=== PATIENT | male | born 1955 | race Caucasian/White ===

== ENCOUNTER 2024-12-30 16:39 | Emergency (ER) | payer OTHER ==
[~2024-12-30] VITALS: Ht 182.9 cm; Wt 105.0 kg
[2024-12-30] MEDS: LORazepam 2MG/ML-1ML VIAL IV ONE (17:28)
[2024-12-30] MEDS: SODIUM CHLORIDE 0.9% 1,000 ML IV ONE (17:29)
[2024-12-30] MEDS: THIAMINE HCL 100 MG TAB PO ONE (17:34)
[2024-12-30 17:47] LABS: Basophils # (auto) 0 10 ^3/uL (0-0.2); Basophils % (auto) 0.7 % (0.0-2.0); Eosinophils # (auto) 0 10 ^3/uL (0-0.8); Eosinophils % (auto) 0.4 % (0.0-7.0); Hematocrit 47.7 % (41.0-53.0); Hemoglobin 16.6 g/dL (13.5-17.5); Lymphocytes # (auto) 0.9 10 ^3/uL (0.4-5.4); Lymphocytes % (auto) 14.3 % (10.0-50.0); Mean Corpuscular Hemoglobin 31.6 pg (28.0-32.0); Mean Corpuscular Hgb Conc. 34.9 g/dL (32.0-36.0); Mean Corpuscular Volume 90.6 fL (80.0-100.0); Monocytes # (auto) 0.8 10 ^3/uL (0-1.3); Monocytes % (auto) 13.7 % (0.0-12.0); Neutrophils # (auto) 4.3 10 ^3/uL (1.6-8.6); Neutrophils % (auto) 70.9 % (37.0-80.0); Nucleated Red Blood Cells % 0.1 %; Platelet Count (auto) 227 10^3/uL (140-450); Red Blood Cells 5.26 10^6/uL (4.5-5.90); Red Cell Distribution Width 12.9 % (11.8-14.3); White Blood Cell 6.1 10^3/uL (4.4-10.8)
--- NOTE | 2024-12-30 17:59 | ED.PDOC ---
Psychiatric HPI Comments HPI: 69y M who presents to the ED for chief complaint of restlessness - pt states he has history of EOTH use disorder and states he drinks regularly - pt states he drinks 2 beers daily with noted 4-5 shots of heavy liquor with brother nightly. - pt states after last drink approx 11 AM which was 2 shots of hard liquor, he f elt restless and anxious since and was taken by spouse to [facility] for evaluation - pt states EMS was called at [facility] for evaluation for pt - pt now in the ED, noted to be restless with shaking like movements - pt otherwise denies any other symptoms Past Medical history: HTN, gout, bipolar, anxiety, HLD Past Surgical history: denies Medications: buspirone, metroprolol, trazadone, lisinopri, Allergies: nsaids Social History: endorses ETOH, denies tobacco use, endorses drug use(louisto) DORINDA; HPI: Poor Historian. Patient appears restless and anxious. REVIEW OF SYSTEMS: CONSTITUTIONAL: Denies acute: fever, diaphoresis, chills, generalized weakness. HEAD: Denies acute: headache, photophobia Eyes: Denies acute: Double vision, vision loss, eye pain, eye discharge. EARS: Denies acute: tinnitus, hearing loss, ear discharge, ear pain, THROAT: Denies acute: sore throat, swelling, difficulty swallowing , pain with swallowing, change in voice. NECK: Denies acute: neck pain, neck swelling, stiff neck. HEART: Denies acute : chest pain, palpitations, LUNGS: Denies acute: SOB, wheezing, cough, hemoptysis ABDOMEN: Denies acute: abdominal pain, Nausea, Vomiting, diarrhea, melena , hematemesis, hematochezia SKIN: Denies acute: rash, redness, lesions, itchiness. EXTREMITIES: Denies acute: calf pain, numbness, tingling, weakness, denies pain in extremity. Denies acute: Low back pain. Neuro: Denies acute: focal neurological deficit, motor or sensory focal neurological deficit, tremors, seizure like activity, confusion, dizziness, change in mental status, loss of bowel or bladder function, cauda equina like symptoms. : Denies acute: dysuria, hematuria, flank pain, increase in urinary frequency. PSYCH: Denies acute: hallucination, suicidal ideation, homicidal ideation. FEMALE: Denies acute: abnormal vaginal bleeding, foul odor, unusual discharge. PHYSICAL EXAM: General: ---mild-----acute distress, awake and alert. Appears restless Head: normocephalic, atraumatic. Neck: supple, trachea is midline, no swelling. Throat: Normal phonation. Eyes:, no erythema, no purulent discharge, no proptosis, no icterus. Heart: regular rate, regular rhythm, no significant murmur appreciated. Lungs: no apparent respiratory distress, Able to speak in full sentences. No wheezing, no rhonchi, no crackles. No stridors Clear to auscultation bilaterally. Abdomen: non tender to palpation, non distended, soft, no guarding, no rebound, + bowel sounds. Neuro: Awake, Alert, oriented to name, self, situation, follows commands GCS=15. Speech is normal. Skin: no petechia, no purpura, no cyanosis, non-pale, not jaundice. Lower extremities: --1/4 B/L - Pitting edema no deformity, no focal swelling, no calf TTP. Makes eye contact. moves all four extremities. Face: no apparent facial droop. ED COURSE: Chief Complaint: Anxiety Time Seen by MD: 17:58 Reviewed Notes: Medications, Allergies Information Source: Patient Mode of Arrival: EMS Was a procedure done? Was a procedure done?: No Psych Differential Dx OD Differential Dx: Alcohol Abuse, Anxiety Intoxication Differential Dx: Alcohol Withdraw Syndrome, Delerium Tremens, Hallucinations, Seizures, Anticholinergic Poisoning, Dehydration, Electrolyte Imbalance, Intoxication, Seizure Disorder, Substance Abuse Disorder X-Ray, Labs, Meds, VS Vital Signs Date Time Temp Pulse Resp B/P (MAP) Pulse Ox O2 Delivery O2 Flow Rate FiO2 12/30/24 21:00 79 12/30/24 20:45 19 Room Air* 0 21 12/30/24 19:06 98.7 83 19 135/92 (106) 95 98.7 Lab Test 12/30/24 19:13 12/30/24 17:34 Range/Units Troponin I High Sensitivity 7 6 </=54 ng/L Plasma/Serum Blood Alcohol < 3.0 <10 mg/dL White Blood Count 6.1 4.4-10.8 10^3/uL Red Blood Count 5.26 4.5-5.90 10^6/uL Hemoglobin 16.6 13.5-17.5 g/dL Hematocrit 47.7 41.0-53.0 % Mean Corpuscular Volume 90.6 80.0-100.0 fL Mean Corpuscular Hemoglobin 31.6 28.0-32.0 pg Mean Corpuscular Hemoglobin Concent 34.9 32.0-36.0 g/dL Red Cell Distribution Width 12.9 11.8-14.3 % Platelet Count 227 140-450 10^3/uL Mean Platelet Volume 8.1 6.9-10.8 fL Neutrophils (%) (Auto) 70.9 37.0-80.0 % Lymphocytes (%) (Auto) 14.3 10.0-50.0 % Monocytes (%) (Auto) 13.7 H 0.0-12.0 % Eosinophils (%) (Auto) 0.4 0.0-7.0 % Basophils (%) (Auto) 0.7 0.0-2.0 % Neutrophils # (Auto) 4.3 1.6-8.6 10 ^3/uL Lymphocytes # (Auto) 0.9 0.4-5.4 10 ^3/uL Monocytes # (Auto) 0.8 0-1.3 10 ^3/uL Eosinophils # (Auto) 0 0-0.8 10 ^3/uL Basophils # (Auto) 0 0-0.2 10 ^3/uL Nucleated Red Blood Cells 0.1 % Sodium Level 133 L 136-145 mmol/L Potassium Level 3.7 3.5-5.1 mmol/L Chloride Level 98 98-107 mmol/L Carbon Dioxide Level 23 20-31 mmol/L Anion Gap 12 5-15 Blood Urea Nitrogen < 5 L 9-23 mg/dL Creatinine 0.82 0.700-1.30 mg/dL Glomerular Filtration Rate Calc 96 >90 mL/min BUN/Creatinine Ratio 6.1 L 10.0-20.0 Serum Glucose 103 74-106 mg/dL Lactic Acid Level 1.8 0.4-2.0 mmol/L Calcium Level 10.0 8.7-10.4 mg/dL Magnesium Level 1.9 1.6-2.6 mg/dL Total Bilirubin 0.7 0.2-1.0 mg/dL Aspartate Amino Transferase (AST) 37 13-40 U/L Alanine Aminotransferase (ALT) 45 H 7-40 U/L Alkaline Phosphatase 78 46-116 U/L Total Protein 7.2 5.7-8.2 g/dL Albumin 4.7 3.2-4.8 g/dL Lipase 36 12-53 U/L Time of 1ST Reevaluation: 20:35 (The case was discussed with the [facility] admitting team (HPI, physical exam, labs and diagnostic tests that were available at the time of disposition, ED course, treatment plan) on the phone. They transfer the patient to their service by ALS for further evaluation and treatment. Dr. [email or web address] Authorization number is--[id number]) Reevaluation 1ST: Improved Time of 2ND Reevaluation: 20:43 (At this point patient does not want to be transferred or be admitted to our hospital. He wants to go home. He said his is coming to pick him up.) Patient Education/Counseling: Diagnosis, Treatment Family Education/Counseling: Other Comments Patient presented with the above HPI.------workup was initiated. patient was found with the above mentioned diagnosis. the following medications were ordered: please refer to order lists of meds and tests obtained by myself Dr. Yu. Patient ED course and VS have been stabilized. Patient has been reassessed in the ED and remained in a stable condition. Pertinent incidental findings were discussed with the patient and/or family. Patient/family voices understanding and is agreeable with plan. Patient has been observed in the ED adequate length of time to insure improvement/stability. Escalation of care considered: Consideration of escalation to observation or admission Patient left against medical advice. Patient did not want to be transferred to [facility]. He said he will follow up as an outpatient. He said his family is coming to pick him up. All the reports of any imaging studies that were ordered by myself were reviewed by myself. Departure 1 Departure Time of Disposition: 18:26 Impression: Primary Impression: Alcohol withdrawal Additional Impressions: Anxiety Alcohol abuse Left against medical advice Disposition: 07 LEFT AGAINST MEDICAL ADVICE Admit to: Tele Condition: Guarded Additional Instructions: You are leaving against medical advice. Please seek medical attention DOMITILA. Seek help regarding your alcohol abuse and dependence. Follow up with your PCP DOMITILA. Return to the emergency department if you change your mind or if symptoms change or worsen. Discharged With: Self Critical Care Note Critical Care Time?: No I personally scribed for HUMA YU DO ([email or web address]) on 12/30/24 at 17:59. Electronically submitted by Lanre Khan ([email or web address]). HUMA YU DO Dec 30, 2024 17:59
[2024-12-30 18:07] LABS: Albumin 4.7 g/dL (3.2-4.8); Alkaline Phosphatase 78 U/L (46-116); Anion Gap 12 (5-15); Aspartate Aminotransferase 37 U/L (13-40); Carbon Dioxide 23 mmol/L (20-31); Chloride 98 mmol/L (98-107); Glucose 103 mg/dL (74-106); Magnesium 1.9 mg/dL (1.6-2.6); Potassium 3.7 mmol/L (3.5-5.1); Total Protein 7.2 g/dL (5.7-8.2)
[2024-12-30 18:08] LABS: Bilirubin, Total 0.7 mg/dL (0.2-1.0)
[2024-12-30 18:14] LABS: Alanine Aminotransferase 45 U/L (7-40); BUN/Creatinine Ratio 6.1 (10.0-20.0); Blood Urea Nitrogen < 5 mg/dL (9-23); Sodium 133 mmol/L (136-145)
[2024-12-30 18:31] LABS: Lipase 36 U/L (12-53)
[2024-12-30 19:06] VITALS: BP 135/92; TEMP 98.7; O2SAT 95
[2024-12-30 20:45] VITALS: RESP 19
[2024-12-30] MEDS ORDERED: CHL25C PO (20:45)
[2024-12-30] MEDS: chlordiazePOXIDE HCL 25 MG CAP PO ONE (20:48)
[2024-12-30 21:00] VITALS: PULSE 79
--- NOTE | 2024-12-31 15:19 | ECG ---
[facility] Test Date: 2024-12-30 Test Time: 21:00:55 Pat Name: GHAZAL SETH Department: ER Room: Gender: M Rib Knitter: : [id number] Requested By: HUMA STUART Order Number: [id number] Reading MD: Measurements Intervals [place] Rate: 79 P: 0 OR: 0 QRS: 174 QRSD: 109 T: -9 QT: 426 QTc: 489 Interpretive Statements Atrial flutter with predominant 3:1 AV block Right axis deviation Abnormal R-wave progression, late transition Borderline T abnormalities, inferior leads Borderline prolonged QT interval Please click the below link to view image of tracing.
== END 2024-12-30 20:55 | disposition left against medical advice (07) ==
LOC: EDBD 16:39 → ER 16:39
DX: F10.239 Alcohol dependence with withdrawal, unspecified (principal); F41.9 Anxiety disorder, unspecified; I10 Essential (primary) hypertension; E78.5 Hyperlipidemia, unspecified; F31.9 Bipolar disorder, unspecified; Z88.6 Allergy status to analgesic agent; Z79.899 Other long term (current) drug therapy; Y90.9 Presence of alcohol in blood, level not specified
CPT/HCPCS: 36415; 80053; 80320; 83605; 83690; 83735; 84484; 85025; 93005; 96361; 96374; 99284; J2060; J7030